=== PATIENT | female | born 1975 | race Caucasian/White ===

== ENCOUNTER 2019-11-08 14:29 | Emergency (ER) | payer MEDICAID ==
[~2019-11-08] VITALS: Ht 154.9 cm; Wt 61.2 kg
[2019-11-08 14:38] VITALS: Ht 154.9 cm; Wt 61.2 kg
[2019-11-08 16:21] LABS: BASOPHIL % 0.3 % (0-2); PLATELET COUNT 276 x10^3mcL (130-400); RED CELL DISTRIBUTION WIDTH 13.5 % (11.5-14.5)
[2019-11-08 16:43] LABS: CALCIUM 9.7 mg/dL (8.5-10.1); CARBON DIOXIDE 24.3 mmol/L (21-32); CHLORIDE SERUM 104 mmol/L (98-107); CREATININE SERUM 0.6 mg/dL (0.6-1.0); GFR1 > 60 mL/min; GLUCOSE SERUM 85 mg/dL (74-106); SODIUM SERUM 140 mmol/L (136-145)
[2019-11-08 16:47] LABS: ALBUMIN 3.7 g/dL (3.4-5.0); ALKALINE PHOSPHATASE 30 U/L (46-116); ALT/SGPT 27 U/L (14-59); AST/SGOT 17 U/L (15-37); BILIRUBIN DIRECT 0.09 mg/dL (0.0-0.2); BILIRUBIN TOTAL 0.3 mg/dL (0.20-1.00); LIPASE 210 IU/L (73-393); TOTAL PROTEIN, SERUM 8.2 g/dL (6.4-8.2)
[2019-11-08 17:28] VITALS: BP 132/79
== END 2019-11-08 17:29 | disposition home or self-care (01) ==
LOC: ED 14:29
PROVIDERS: Emergency Medicine
DX: R53.1 Weakness (principal); R42 Dizziness and giddiness; R10.13 Epigastric pain; R51 Headache; H92.01 Otalgia, right ear; Z87.442 Personal history of urinary calculi
CPT/HCPCS: 87804; J0780; J7030

== ENCOUNTER 2020-07-30 12:59 | Emergency (ER) | payer MEDICAID ==
[~2020-07-30] VITALS: Ht 152.4 cm; Wt 58.5 kg
[2020-07-30 13:04] VITALS: Ht 152.4 cm; Wt 58.5 kg
[2020-07-30 15:10] VITALS: BP 123/81
== END 2020-07-30 15:47 | disposition home or self-care (01) ==
LOC: ED 12:59
DX: M76.31 Iliotibial band syndrome, right leg (principal); Z87.442 Personal history of urinary calculi; X50.1XXA Overexertion from prolonged static or awkward postures, initial encounter; Y93.89 Activity, other specified; Y92.89 Other specified places as the place of occurrence of the external cause; Y99.8 Other external cause status
CPT/HCPCS: J1885